=== PATIENT | female | born 1945 | race Caucasian/White ===

== ENCOUNTER → 2017-03-14 | Outpatient (CLI) | payer OTHER ==
[~2017-03-14] MED LIST: ACCUNEB 0.0.63 MG/3 INH; ADVAIR 250/501 EA INH; DELTASONE20 MG PO; FLOVENT 110 M110 MCG INH; LEVOFLOXACIN500 MG PO; NICOTINE T14 MG/24 H TD; PROAIR HFA0.09 MG/AC IH; XALATAN 0.005%2.5 ML INTRAOC
[2017-03-14 09:06] LABS: BASO # 0.1 10*3/uL (0.0-0.1); BASO % 0.4 % (0.0-1.0); EOS # 0.2 10*3/uL (0.0-0.4); EOS % 1.1 % (1.0-4.0); HEMATOCRIT 44.9 % (37.0-47.0); HEMOGLOBIN 14.7 g/dl (12.0-16.0); LYMPH # 3.3 10*3/uL (1.3-4.4); LYMPH % 24.8 % (27.0-41.0); MEAN CELL VOLUME 87.4 fl (81.0-99.0); MEAN CORPUSCULAR HGB 28.6 pg (27.0-31.0); MEAN CORPUSCULAR HGB CONC 32.7 g/dl (33.0-37.0); MEAN PLATELET VOLUME 8.6 fl (9.6-12.3); MONO # 1.3 10*3/uL (0.1-1.0); MONO % 9.7 % (3.0-9.0); NEUT # 8.5 10*3/uL (2.3-7.9); NEUT % 63.7 % (47.0-73.0); PLATELET COUNT AUTOMATED 507 10*3/uL (130-400); RED BLOOD COUNT 5.14 10*6/uL (4.10-5.10); RED CELL DISTRI WIDTH 14.6 % (0-14.5); WHITE BLOOD COUNT 13.4 10*3/uL (4.8-10.8)
[2017-03-14 09:09] LABS: BILIRUBIN NEGATIVE (NEGATIVE); BLOOD TRACE-INTACT (NEGATIVE); CLARITY SL CLOUDY (CLEAR); COLOR YELLOW (YELLOW); GLUCOSE NEGATIVE (NEGATIVE); KETONE NEGATIVE (NEGATIVE); LEUKO ESTERASE TRACE (NEGATIVE); NITRITE NEGATIVE (NEGATIVE); PH 5.5 (5.0-9.0); PROTEIN NEGATIVE (NEGATIVE); UROBILINOGEN 0.2 E.U./dl (0.2-1.0)
[2017-03-14 09:32] LABS: BACTERIA 2+; EPITHELIAL CELLS 20-30; URINE REFLEX COMMENT YES (NO); WBC 16-20 wbc/hpf (0-5)
[2017-03-14 09:37] LABS: BUN 12 mg/dl (7-24); CARBON DIOXIDE 27 mmol/L (21-32); CHLORIDE 96 mmol/L (98-107); EST GLOM FILT AFRICAN AMERICAN > 60 ml/min; SODIUM 133 mmol/L (136-145)
== END | disposition home or self-care (01) ==
LOC: LAB 08:16
PROVIDERS: Neurological Surgery
DX: Z01.818 Encounter for other preprocedural examination (principal); R06.02 Shortness of breath; R06.2 Wheezing; J90 Pleural effusion, not elsewhere classified; R91.8 Other nonspecific abnormal finding of lung field; J44.9 Chronic obstructive pulmonary disease, unspecified; Z87.891 Personal history of nicotine dependence

== ENCOUNTER → 2017-04-01 | Outpatient (CLI) | payer OTHER | END | disposition home or self-care (01) | LOC: CARD 08:11 | DX: R94.31 Abnormal electrocardiogram [ECG] [EKG] (principal) ==

== ENCOUNTER → 2018-05-14 | Outpatient (CLI) | payer OTHER ==
--- NOTE | ~2018-05-14 | PF ---
[place], [place] PULMONARY FUNCTION TEST [id number] UNIT #: [id number] ROOM: DOCTOR: NADYA HAHN MD,VALERIE BIRTHDATE: [birth year] DOS: 05/14/2018 ORDERED BY: Dr. Allen Jean Baptiste. HISTORY: The patient is a 72-year-old outpatient, female, height of 60 inches, weight of 150 pounds diagnoses of COPD reported, tobacco use 1 pack of cigarettes for 51 years were recorded. The patient was noted symptoms of dyspnea with exertion, productive cough and frequent wheezing. SPIROMETRY: The FVC was recorded 1.77 liters as 73% predicted value, mildly decreased FEV1 of 1.40 liters, 74% predicted value, mildly decreased. Ratio of FEV1/FVC recorded 79% post-bronchodilator. No changes or improvement noted in the FEV1 or FVC. Flow volume suggestive of mild obstructive airway pattern. LUNG VOLUME: Thoracic gas volume recorded at 101%, residual volume 113%, total lung capacity 90%. RV/TLC ratio 129%. The patient's lung diffusion recorded 93%. The patient's airway resistance, passive conductance noted grossly normal. IMPRESSION: Mild nonspecific reduction of FEV1/FVC was recorded. Remaining pulmonary function tests were noted as normal. VALERIE COVINGTON MD CM:PFREPORT:PULMONARY FUNCTION TEST 1505 [id number] VALERIE HAHN MD
== END | disposition home or self-care (01) ==
LOC: CP 07:49
DX: J44.9 Chronic obstructive pulmonary disease, unspecified (principal)

== ENCOUNTER → 2018-09-29 | Outpatient (CLI) | payer OTHER | END | disposition home or self-care (01) | LOC: RAD 12:24 | DX: J44.9 Chronic obstructive pulmonary disease, unspecified (principal); F17.200 Nicotine dependence, unspecified, uncomplicated ==

== ENCOUNTER 2019-07-26 10:36 | Inpatient (IN) | payer OTHER ==
[~2019-07-26] VITALS: Ht 152.4 cm; Wt 65.9 kg
--- NOTE | ~2019-07-26 | CON ---
[place], [place] REPORT OF CONSULTATION [id number] UNIT #: [id number] ROOM: 403 DOCTOR: VALERIE FREITAS MD BIRTHDATE: [birth year] DOS: 07/27/2019 PULMONARY CONSULTATION, EVALUATION AND MANAGEMENT CONSULTATION REQUESTED BY: Hospitalist Service. REASON FOR CONSULTATION: For the assessment of abnormal respiratory symptom with possibility of pneumonia. HISTORY OF PRESENT ILLNESS: This is a 73-year-old white female patient with history of COPD and history of nicotine dependence. The patient has been seen in the [facility]. The patient stated the symptoms have been present for the last several days associated with coughing, wheezing and shortness of breath. She denies any symptoms of chest pain. The patient has been seen in the [facility] and asked to be assessed and admitted to the hospital because of acute pneumonia. She does complain of pain related to the cough, which has been noted intermittently in the lower portion of the ribs. The patient denies symptoms of hemoptysis. She has been previously treated for similar symptoms a few days ago and the symptoms were not resolving. She has been admitted to the hospital for further care. Stated symptoms have been noted decreased and improving since hospitalization in the last 24 hours. REVIEW OF SYSTEMS: CONSTITUTIONAL: Fatigue and tiredness noted without any symptoms of fever or chills. EYES: Denies burning, redness, or tenderness. EARS, NOSE, THROAT SYMPTOMS: No sore throat, hoarseness, otalgia, postnasal drainage or epistaxis. CARDIOVASCULAR: Denies anginal pain, edema, pain of the lower extremities. GASTROINTESTINAL: No dysphagia, nausea, vomiting, diarrhea, abdominal pain, hematemesis, melena, or hematochezia. SKIN: Denies abnormal lesions or rashes. CENTRAL NERVOUS SYSTEM: No dizziness, headache, diplopia or syncopal episode. Remaining systems were reviewed with the patient, they were noted all negative. PAST MEDICAL HISTORY: 1. History of glaucoma. 2. Chronic obstructive pulmonary disease. 3. Nicotine dependence. PAST SURGICAL HISTORY: Reported: 1. Tubal ligation. 2. Tonsillectomy. 3. Appendectomy. SOCIAL HISTORY: The patient is , has 2 children, lives at home. Tobacco use noted 1 pack of cigarettes per day actively. She has also noted with intermittent use of alcoholic beverages. [place], [place] REPORT OF CONSULTATION NAME: ADRIENNE TORRES UNIT #: [id number] ROOM: 403 DOCTOR: VALERIE FREITAS MD BIRTHDATE: [birth year] FAMILY HISTORY: The patient's father at 85 years of complications of heart disease. Mother at 71 years old with complications of COPD. HOME MEDICATIONS: Listed as Advair 250/15. Xalatan eye drops and Ventolin HFA inhaler p.r.n. use. CURRENT MEDICATIONS: Which were administered on this hospitalization were nicotine placement patches, Lovenox for DVT prophylaxis, latanoprost, Solu-Medrol 40 mg b.i.d., DuoNeb q. 6 hours, Levaquin, and some other meds. DRUG ALLERGIES: No known drug allergies. PHYSICAL EXAMINATION: GENERAL: This is a 73-year-old white female patient, who has been currently noted to be awake and alert without any acute distress this morning of assessment. Height recorded by the nursing staff of the patient with a height of 5 feet, weight 145 pounds, BMI 28. VITAL SIGNS: For the patient which were recorded was noted normal temperature, respiratory rate 18-20, heart rate of 80-82, blood pressure 146/50-124/59. Pulse ox saturation recorded at rest on room air 95% saturation. HEENT: Examination shows head was atraumatic. Eyes nonicterus. NECK: Supple. CARDIOVASCULAR: S1, S2 is audible. LUNGS: Noted without any wheezing or crackles. Breaths are noted moderately diminished generalized bilaterally. ABDOMEN: Soft, nontender. Bowel sounds present. EXTREMITIES: The patient noted without any edema, clubbing or cyanosis. MUSCULOSKELETAL: Noted without any acute deformities. CENTRAL NERVOUS SYSTEM: The patient noted to be intact. LABORATORY DATA: Chest x-ray that was done in the Emergency Room was reviewed on 07/26/2019 with increased interstitial marking was noted. A chest x-ray was done on 04/19/2019, which showed similar findings as noted today. A few other studies were also reviewed. Chest x-ray that was done on 09/29/2018 were noted with finding of chronic obstructive pulmonary disease at that time. PT/PTT, which was done on 07/26/2019 was normal. The CMP that was done on 07/26/2019, glucose 130, BUN and creatinine normal, sodium 129. C-reactive protein mildly elevated at 7.34. Influenza A and B, nasal washing antigen negative yesterday. CBC yesterday, WBC count 20.7, hemoglobin and hematocrit normal, platelet count 573,000 with 68% segmented neutrophils. The CBC done this morning, WBC count 21.4, hemoglobin and hematocrit normal, platelet count 507,000. BMP this morning, sodium 132. TSH was normal. IMPRESSION: 1. The patient who has been currently admitted to the hospital was treated at this time for failed outpatient treatment with increased respiratory symptom consistent with acute exacerbation of chronic obstructive pulmonary disease and increased interstitial marking, etiology was unclear. The respiratory virus testing was done for influenza A and B, nasal washing antigen noted as negative. [place], [place] REPORT OF CONSULTATION NAME: ADRIENNE TORRES UNIT #: [id number] ROOM: 403 DOCTOR: VALERIE FREITAS MD BIRTHDATE: [birth year] Possibility of viral illness present cannot be completely excluded. 2. History of chronic nicotine dependence. 3. The patient was also noted with evidence of significant leukocytosis yesterday, WBC count 20.7 and the elevated platelet count 570,000. CBC today was noted white cell count elevated at 21.4 with hemoglobin and hematocrit normal, platelet count of 507,000 mildly decreased. Differential noted 85% segmented neutrophils. PLAN OF MANAGEMENT: The patient has been noted clinically stable, could be discharged home on oral antibiotic, has Levaquin, which was administered and tapering prednisone. Tobacco cessation would be advised. Outpatient follow up to be established by the patient to exclude interstitial lung disease. Continuation of other therapy, plan of management, care plan treatment as in progress. Usual care. Supportive plan of management and other therapies. Additional treatment changes will be recommended based on the progression of the illness. White cell count need to be monitored as an outpatient to assess if it is not effect of the usual recent use of corticosteroids and current use of corticosteroids as well. VALERIE COVINGTON MD CM:CONSTR:REPORT OF CONSULTATION 1238 07/27/19 1259 interface
--- NOTE | ~2019-07-26 | EKG ---
[place], [place] ELECTROCARDIOGRAM REPORT NAME: ADRIENNE TORRES UNIT #: [id number] ROOM: 403 DOCTOR: FESTUS DRAFT REPORT BIRTHDATE: [birth year] [facility] Test Date: 2019-07-26 Test Time: 10:50:30 Pat Name: ADRIENNE TORRES Department: Room: 403 Gender: F Hand Crown Pouncer: Gogo Toney : 1945 Requested By: CELESTINE BRYAN DNP Order Number: [id number] Reading MD: Jameel Schaeffer MD Measurements Intervals [place] Rate: 102 P: 76 VT: 145 QRS: -34 QRSD: 98 T: 117 QT: 329 QTc: 429 Interpretive Statements Sinus tachycardia Atrial premature complex Abnormal R-wave progression, late transition LVH with secondary repolarization abnormality No previous ECG available for comparison Electronically Signed On 07-26-2019 11:17:27 PST by Jameel Schaeffer MD CM:EKGRPT:ELECTROCARDIOGRAM REPORT 1050 [id number] CELESTINE MORTENSEN DRAFT REPORT CELESTINE BRYAN DNP
[~2019-07-26 10:36] MED LIST changes: +Ipratropium Brom3 ML INH; +PREDNISONE20 M1 PO; +VIBRAMYCIN100 MG PO
[2019-07-26 10:38] VITALS: BP 163/53
--- NOTE | 2019-07-26 11:05 | NUR ---
ADMISSION ORDER NOW GOES THRU BUT PT HAS NOT HAD HER XRAY AND NOW GOES OFF THE FLOOR WITHOUT IV OR MEDS YET. ADMITTING DR NOW ARRIVES TO FLOOR FOR EXAM.
[2019-07-26 11:06] LABS: HEMATOCRIT 40.9 % (37.0-47.0); HEMOGLOBIN 13.4 g/dl (12.0-16.0); MEAN CELL VOLUME 85.7 fl (81.0-99.0); MEAN CORPUSCULAR HGB 28.1 pg (27.0-31.0); MEAN CORPUSCULAR HGB CONC 32.8 g/dl (33.0-37.0); PLATELET COUNT AUTOMATED 573 10*3/uL (130-400); RED BLOOD COUNT 4.77 10*6/uL (4.10-5.10); RED CELL DISTRI WIDTH 13.5 % (0-14.5); WHITE BLOOD COUNT 20.7 10*3/uL (4.8-10.8)
[2019-07-26 11:15] LABS: BILIRUBIN NEGATIVE (NEGATIVE); BLOOD NEGATIVE (NEGATIVE); CLARITY SL CLOUDY (CLEAR); COLOR YELLOW (YELLOW); GLUCOSE NEGATIVE (NEGATIVE); KETONE NEGATIVE (NEGATIVE); LEUKO ESTERASE NEGATIVE (NEGATIVE); NITRITE NEGATIVE (NEGATIVE); PH 6.5 (5.0-9.0); SPECIFIC GRAVITY 1.015 (1.005-1.030); UROBILINOGEN 0.2 E.U./dl (0.2-1.0)
[2019-07-26 11:19] LABS: ACT PARTIAL THROMBO TIME 28.5 SECONDS (20.0-32.1)
[2019-07-26 11:24] LABS: BACTERIA 2+; EPITHELIAL CELLS 15-20; MUCOUS 3+
[2019-07-26 11:28] LABS: ALKALINE PHOSPHATASE 71 U/L (45-117); BUN 12 mg/dl (7-24); CHLORIDE 98 mmol/L (98-107); CREATININE 0.78 mg/dL (0.55-1.02); LIPASE 74 U/L (73-393); POTASSIUM 3.9 mmol/L (3.5-5.1); SGOT/AST 13 IU/L (3-35); SGPT/ALT 19 U/L (12-78); SODIUM 129 mmol/L (136-145); TOTAL PROTEIN 7.3 gm/dL (6.4-8.2)
[2019-07-26 11:32] LABS: PLATELET SUFFICIENCY HIGH (NORMAL); TOTAL CELLS COUNTED 100 #CELLS; TROPONIN I < 0.015 ng/ml (<0.045)
--- NOTE | 2019-07-26 11:35 | NUR ---
CRITICAL LAB RESULT RECEIVED AT THIS TIME. CELESTINE MACIAS AND ANTONIETA MCCABE NOTIFIED.
[2019-07-26 11:45] VITALS: BP 131/57
--- NOTE | 2019-07-26 11:45 | NUR ---
A 73, admitted to , under the services of NILES Martin DO with a diagnosis of DYSPNEA, PNEUMONITIS. Chief complaint is SHORTNESS OF BREATH/LEFT SIDED PAIN. Patient arrived via bed from ER. Monitor applied. Initial assessment completed. Vital signs taken and recorded. NILES MARTIN DO notified of admission to the unit. Orders received. See assessment for past medical history, medications and allergies. Patient and/or family oriented to unit. [facility] visitation policy reviewed. Clothing/patient valuable form completed. SAMARA SARGENT
--- NOTE | 2019-07-26 12:20 | NUR ---
PATIENT STATES THAT SHE TAKES TWO MEDICATIONS. ADVAIR 250/50 TWICE A DAY AND LATANAPROST 1 DROP IN EACH EYE AT NIGHT
--- NOTE | 2019-07-26 13:46 | NUR ---
DR. COVINGTON NOTIFIED OF CONSULT
[2019-07-26 16:00] VITALS: BP 134/53
[2019-07-26 20:00] VITALS: BP 115/47
--- NOTE | 2019-07-26 20:57 | NUR ---
Patient resting quietly with no c/o discomfort. Respirations easy and regular. Vital signs stable. No overt distress. JUAN KUMAR
--- NOTE | 2019-07-26 21:15 | NUR ---
24HR CHART CHECK COMPLETED.
--- NOTE | 2019-07-26 22:19 | NUR ---
24 HR chart check completed.
[2019-07-27] VITALS: BP 146/52
--- NOTE | 2019-07-27 00:31 | NUR ---
PATIENT HAS COARSE POSTERIOR RALES IN RIGHT AND LEFT LOBES. DR. JOLLEY UPDATED. FLUIDS STOPPED ORDERED. PATIENT DENIES SHORTNESS OF BREATH.
[2019-07-27 06:58] LABS: BASO % 0.1 % (0.0-1.0); HEMATOCRIT 37.2 % (37.0-47.0); HEMOGLOBIN 12.1 g/dl (12.0-16.0); LYMPH # 1.7 10*3/uL (1.3-4.4); LYMPH % 8.1 % (27.0-41.0); MEAN CELL VOLUME 86.7 fl (81.0-99.0); MEAN CORPUSCULAR HGB 28.2 pg (27.0-31.0); MEAN CORPUSCULAR HGB CONC 32.5 g/dl (33.0-37.0); MEAN PLATELET VOLUME 8.3 fl (9.6-12.3); MONO # 1.2 10*3/uL (0.1-1.0); MONO % 5.5 % (3.0-9.0); NEUT # 18.3 10*3/uL (2.3-7.9); NEUT % 85.6 % (47.0-73.0); PLATELET COUNT AUTOMATED 507 10*3/uL (130-400); RED BLOOD COUNT 4.29 10*6/uL (4.10-5.10); RED CELL DISTRI WIDTH 13.7 % (0-14.5); WHITE BLOOD COUNT 21.4 10*3/uL (4.8-10.8)
[2019-07-27 07:26] LABS: CHLORIDE 101 mmol/L (98-107); SODIUM 132 mmol/L (136-145)
--- NOTE | 2019-07-27 07:30 | NUR ---
PT AWAKE. BEDSIDE REPORT RECEIVED FORM BRAD MCCABE.
[2019-07-27 07:40] LABS: BUN 11 mg/dl (7-24); CREATININE 0.61 mg/dL (0.55-1.02); FREE T4 0.95 ng/dl (0.76-1.46); THYROID STIM HORMONE (HS) 0.378 uIU/ml (0.358-4.75)
[2019-07-27 07:41] LABS: POTASSIUM 4.2 mmol/L (3.5-5.1)
[2019-07-27 08:00] VITALS: BP 124/59
--- NOTE | 2019-07-27 09:00 | NUR ---
Director Of [facility] [employer] in to talk to patient. Patient states lives at home with . There are few steps in the home. Physician: zaira [facility]acy[facility]: none Patient's level of ADLs: INDEPENDENT Patient has working utilities: all working DME: none Follow-up physician's appointment after d/c: will be made by hospitalist nurse director upon discharge Does patient want to access PORTAL?: no Discharge plan discussed with patient, she lives at home with her , she states she is independent in adls and ambulation, she stated she drives but only occasionally, that her does most of the driving, she states she will return home when medically stable and denies any home needs, case management will follow. LUCRETIA MAYEN
--- NOTE | 2019-07-27 09:30 | NUR ---
PT AWAKE. ASSESSMENT COMPLETE. ROUTINE MEDICATIOSN WELL TOLERATED. CALL KANG IN REACH. FAMILY AT THE BEDSIDE.
[2019-07-27 12:00] VITALS: BP 124/59
--- NOTE | 2019-07-27 12:24 | NUR ---
PER DR ISRAEL I SPOKE TO DR COVINGTON REGARDING DISCHARGE. DR COVINGTON STATED HE WILL LOOK OVER HIS NOTES AND CALL ME BACK
--- NOTE | 2019-07-27 12:48 | NUR ---
PER DR COVINGTON PT CAN BE DISCHARGED WITH PO ANTIBIOTICS AND STEROIDS. HE ALSO WANTS A REPRIRATORY VIRUS PROFILE DONE BEFORE DC. HE WILL SEE PT IN HIS OFFICE 2-3 WEEKS. PTS WBC ELEVATED AND DR COVINGTON RECOMENDS REPEAT CBC LATER THIS WEEK.
[2019-07-27] MEDS ORDERED: LEVAQUIN500 M2 PO (13:02)
[2019-07-27] MEDS ORDERED: PREDNISONE10 MG PO (13:02)
--- NOTE | 2019-07-27 15:04 | NUR ---
ADMINISTERED IM FLU AND PNEUMO VACCINATIONS
--- NOTE | 2019-07-27 15:07 | NUR ---
Discharge instructions reviewed with patient/family. Patient receptive and verbalizes understanding. Follow-up care arranged. Written instructions given to patient/family. CHIARA WEINSTEIN
[2019-07-31 00:10] LABS: ADENOVIRUS Negative (Negative); INFLUENZA A Negative (Negative); INFLUENZA B Negative (Negative); METAPNEUMOVIRUS Negative (Negative); PARAINFLUENZA 1 Negative (Negative); PARAINFLUENZA 2 Negative (Negative); PARAINFLUENZA 3 Negative (Negative); RHINOVIRUS Negative (Negative); RSV A Negative (Negative); RSV B Negative (Negative)
== END 2019-07-27 15:07 | disposition home or self-care (01) | DRG 871 ==
LOC: ED 10:36 → EDHOLD 11:07 → 4E 11:07
PROVIDERS: Internal Medicine; Internal Medicine Critical Care Medicine; Nurse Practitioner Family; ADMIT Emergency Medicine
DX: A41.9 Sepsis, unspecified organism (principal); J18.9 Pneumonia, unspecified organism; J44.0 Chronic obstructive pulmonary disease with (acute) lower respiratory infection; E87.1 Hypo-osmolality and hyponatremia; E44.0 Moderate protein-calorie malnutrition; R65.20 Severe sepsis without septic shock; Z66 Do not resuscitate; Z51.5 Encounter for palliative care; R73.9 Hyperglycemia, unspecified; D47.3 Essential (hemorrhagic) thrombocythemia; I10 Essential (primary) hypertension; F17.210 Nicotine dependence, cigarettes, uncomplicated; Z71.6 Tobacco abuse counseling; Z90.49 Acquired absence of other specified parts of digestive tract; Z98.51 Tubal ligation status; Z82.49 Family history of ischemic heart disease and other diseases of the circulatory system; Z82.5 Family history of asthma and other chronic lower respiratory diseases; Z68.28 Body mass index [BMI] 28.0-28.9, adult

== ENCOUNTER → 2019-07-30 | Outpatient (CLI) | payer OTHER ==
[~2019-07-30] MED LIST changes: +LEVAQUIN500 M2 PO; +PREDNISONE10 MG PO
[2019-07-30 09:09] LABS: HEMATOCRIT 42.3 % (37.0-47.0); HEMOGLOBIN 13.9 g/dl (12.0-16.0); MEAN CELL VOLUME 84.8 fl (81.0-99.0); MEAN CORPUSCULAR HGB 27.9 pg (27.0-31.0); MEAN CORPUSCULAR HGB CONC 32.9 g/dl (33.0-37.0); MEAN PLATELET VOLUME 8.1 fl (9.6-12.3); PLATELET COUNT AUTOMATED 598 10*3/uL (130-400); RED BLOOD COUNT 4.99 10*6/uL (4.10-5.10); RED CELL DISTRI WIDTH 13.5 % (0-14.5)
[2019-07-30 09:42] LABS: BASOPHILS 1 % (0-1); PLATELET SUFFICIENCY HIGH (NORMAL); TOTAL CELLS COUNTED 100 #CELLS
== END | disposition home or self-care (01) ==
LOC: LAB 08:19
PROVIDERS: Internal Medicine
DX: D72.829 Elevated white blood cell count, unspecified (principal)

== ENCOUNTER → 2019-11-26 | Outpatient (CLI) | payer OTHER ==
[2019-11-26 08:54] LABS: BASO # 0.1 10*3/uL (0.0-0.1); BASO % 0.7 % (0.0-1.0); EOS # 0.3 10*3/uL (0.0-0.4); EOS % 3.6 % (1.0-4.0); HEMOGLOBIN 14.5 g/dl (12.0-16.0); LYMPH # 2.4 10*3/uL (1.3-4.4); LYMPH % 29.5 % (27.0-41.0); MEAN CELL VOLUME 85.1 fl (81.0-99.0); MEAN CORPUSCULAR HGB 27.4 pg (27.0-31.0); MEAN CORPUSCULAR HGB CONC 32.2 g/dl (33.0-37.0); MEAN PLATELET VOLUME 8.8 fl (9.6-12.3); MONO # 1.1 10*3/uL (0.1-1.0); MONO % 12.7 % (3.0-9.0); NEUT # 4.4 10*3/uL (2.3-7.9); NEUT % 53.3 % (47.0-73.0); PLATELET COUNT AUTOMATED 486 10*3/uL (130-400); RED BLOOD COUNT 5.29 10*6/uL (4.10-5.10); RED CELL DISTRI WIDTH 14.6 % (0-14.5); WHITE BLOOD COUNT 8.3 10*3/uL (4.8-10.8)
[2019-11-26 09:24] LABS: ALBUMIN 3.4 gm/dl (3.1-4.5); BILIRUBIN, DIRECT 0.1 mg/dL (0.0-0.2); BUN 8 mg/dl (7-24); CHLORIDE 98 mmol/L (98-107); CHOLESTEROL 187 mg/dL (<200); CREATININE 0.66 mg/dL (0.55-1.02); POTASSIUM 4.1 mmol/L (3.5-5.1); SGOT/AST 23 IU/L (3-35); SGPT/ALT 25 U/L (12-78); SODIUM 129 mmol/L (136-145); THYROXINE (T4) TOTAL 8.3 ug/dl (4.8-13.9); TOTAL PROTEIN 8.3 gm/dL (6.4-8.2); TRIGLYCERIDES 102 mg/dl (<150); VLDL CHOLESTEROL 20 mg/dL (6-40)
[2019-11-26 09:30] LABS: ALKALINE PHOSPHATASE 81 U/L (45-117); HDL CHOLESTEROL 61 mg/dl (40-60); LDL CHOLESTEROL 106 mg/dL (9-159)
== END | disposition home or self-care (01) ==
LOC: LAB 07:52
PROVIDERS: Family Medicine
DX: J44.9 Chronic obstructive pulmonary disease, unspecified (principal); E55.9 Vitamin D deficiency, unspecified; Z79.899 Other long term (current) drug therapy

== ENCOUNTER → 2021-02-22 | Outpatient (CLI) | payer OTHER ==
[2021-02-22 09:08] LABS: BASO # 0.1 10*3/uL (0.0-0.1); BASO % 0.7 % (0.0-1.0); EOS # 0.3 10*3/uL (0.0-0.4); HEMATOCRIT 44.8 % (37.0-47.0); LYMPH # 2.2 10*3/uL (1.3-4.4); LYMPH % 26.4 % (27.0-41.0); MEAN CELL VOLUME 84.5 fl (81.0-99.0); MEAN CORPUSCULAR HGB 27.7 pg (27.0-31.0); MEAN CORPUSCULAR HGB CONC 32.8 g/dl (33.0-37.0); MEAN PLATELET VOLUME 9.2 fl (9.6-12.3); MONO % 11.8 % (3.0-9.0); NEUT # 4.8 10*3/uL (2.3-7.9); NEUT % 57.9 % (47.0-73.0); PLATELET COUNT AUTOMATED 420 10*3/uL (130-400); RED CELL DISTRI WIDTH 14.1 % (0-14.5); WHITE BLOOD COUNT 8.4 10*3/uL (4.8-10.8)
[2021-02-22 09:40] LABS: ALBUMIN 3.3 gm/dl (3.1-4.5); ALKALINE PHOSPHATASE 78 U/L (45-117); BILIRUBIN, DIRECT 0.2 mg/dL (0.0-0.2); BUN 8 mg/dl (7-24); CHLORIDE 102 mmol/L (98-107); CREATININE 0.61 mg/dL (0.55-1.02); POTASSIUM 4.1 mmol/L (3.5-5.1); SGOT/AST 23 IU/L (3-35); SGPT/ALT 21 U/L (12-78); SODIUM 128 mmol/L (136-145); TOTAL PROTEIN 8.6 gm/dL (6.4-8.2)
== END | disposition home or self-care (01) ==
LOC: LAB 08:20
PROVIDERS: ATTEND Family Medicine
DX: J44.9 Chronic obstructive pulmonary disease, unspecified (principal); E55.9 Vitamin D deficiency, unspecified

== ENCOUNTER → 2023-07-09 | Outpatient (CLI) | payer OTHER ==
[2023-07-09 07:33] LABS: BASO # 0.1 10*3/uL (0.0-0.1); BASO % 0.7 % (0.0-1.0); EOS # 0.4 10*3/uL (0.0-0.4); EOS % 4.2 % (1.0-4.0); HEMATOCRIT 42.4 % (37.0-47.0); LYMPH # 1.5 10*3/uL (1.3-4.4); LYMPH % 16.1 % (27.0-41.0); MEAN CORPUSCULAR HGB 28.7 pg (27.0-31.0); MEAN CORPUSCULAR HGB CONC 34.2 g/dl (33.0-37.0); MEAN PLATELET VOLUME 9.2 fl (9.6-12.3); MONO % 11.1 % (3.0-9.0); NEUT # 6.1 10*3/uL (2.3-7.9); NEUT % 67.6 % (47.0-73.0); PLATELET COUNT AUTOMATED 188 10*3/uL (130-400); RED BLOOD COUNT 5.05 10*6/uL (4.10-5.10); RED CELL DISTRI WIDTH 13.9 % (0-14.5); WHITE BLOOD COUNT 9.1 10*3/uL (4.8-10.8)
[2023-07-09 07:58] LABS: ALKALINE PHOSPHATASE 72 U/L (46-116); BUN 7 mg/dl (9-23); CHLORIDE 95 mmol/L (98-107); CHOLESTEROL 172 mg/dL (<200); LDL CHOLESTEROL 94 mg/dL (9-159); POTASSIUM 4.2 mmol/L (3.4-5.1); SGPT/ALT 15 U/L (5-49); TOTAL PROTEIN 7.4 gm/dL (6.0-8.0); TRIGLYCERIDES 78 mg/dl (<150)
== END | disposition home or self-care (01) ==
LOC: LAB 07:06
PROVIDERS: ATTEND Nurse Practitioner Family
DX: J44.9 Chronic obstructive pulmonary disease, unspecified (principal); F17.210 Nicotine dependence, cigarettes, uncomplicated; G47.00 Insomnia, unspecified; G89.29 Other chronic pain; M54.50 Low back pain, unspecified; Z79.899 Other long term (current) drug therapy

== ENCOUNTER → 2024-07-14 | Outpatient (CLI) | payer MEDICARE | END | disposition home or self-care (01) | LOC: CT 10:54 | PROVIDERS: ATTEND Internal Medicine Critical Care Medicine | DX: Z12.2 Encounter for screening for malignant neoplasm of respiratory organs (principal); R91.8 Other nonspecific abnormal finding of lung field; I25.10 Atherosclerotic heart disease of native coronary artery without angina pectoris; Z87.891 Personal history of nicotine dependence ==